=== PATIENT | male | born 1935 | race Caucasian/White ===

== ENCOUNTER 2024-01-22 08:24 | Emergency (ER) | payer MEDICARE ==
[2024-01-22] MEDS ORDERED: Ketorolac Tromethamine 30 MG (1 mL) VIAL ONE (09:14)
[2024-01-22 09:29] LABS: Influenza A by NAA Not Detected (NotDetected); Influenza B by NAA Not Detected (NotDetected); SARS-CoV-2 NAA Rapid Test DETECTED (NotDetected)
[2024-01-22] MEDS ORDERED: Lidocaine 2% Viscous 10 mL, Alum & Magn 30 mL SSW SCH (09:30)
== END 2024-01-22 09:57 | disposition home or self-care (01) ==
LOC: CSHERS 08:24
DX: J18.9 Pneumonia, unspecified organism (principal); I10 Essential (primary) hypertension; E78.00 Pure hypercholesterolemia, unspecified; Z79.899 Other long term (current) drug therapy
CPT/HCPCS: 0240U; 71045; 87081; 87430; 96372; 99283; J1885